=== PATIENT | female | born 2000 | race Two or more races ===

== ENCOUNTER 2021-12-26 08:42 | Inpatient (IN) | payer OTHER ==
[~2021-12-26] VITALS: Ht 165.1 cm; Wt 91.9 kg
[2021-12-26] VITALS (24 sets, daily range): BP systolic 123–176; BP diastolic 57–114
[2021-12-26] MEDS ORDERED: MAG Sulf (L&D) 4 GM/100 ML 4 GM in IV 1 EA IV ONE (09:20)
[2021-12-26] MEDS ORDERED: OXYTOCIN DRIP 30 UNITS in IV 1 EA IV PRN ×4 (09:20)
[2021-12-26] MEDS ORDERED: LIDOCAINE 1% MDV 20ML VIAL INFIL PRN (09:20)
[2021-12-26] MEDS ORDERED: TRANEXAMIC ACID INJection 1,000 MG in NS 100 ML IV PRN (09:20)
[2021-12-26] MEDS ORDERED: CARBOPROST TROMETHAMINE 250 MCG/ML AMP IM PRN (09:20)
[2021-12-26] MEDS ORDERED: OXYTOCIN INJ 10 UNITS/ML VIAL (J2590) IM PRN (09:20)
[2021-12-26] MEDS ORDERED: CALCIUM GLUCONATE 1,000 MG in D5W MINI-BAG PLUS 100 ML IV PRN (09:20)
[2021-12-26] MEDS: LR 1,000 ML IV SCH ×2 (09:50→20:00)
[2021-12-26] MEDS ORDERED: hydrALAZINE 20MG/ML 1ML VIAL (J0360 PER 20MG) IV ONE (10:00)
[2021-12-26] MEDS ORDERED: BETAMETHASONE SOLUSPAN 6MG/ML 5ML VIAL (J0702 PER 3MG) IM SCH (10:00)
[2021-12-26] MEDS: MAG Sulf (OBGYN) 20GM/500ML 20,000 MG in IV 1 EA IV SCH ×2 (10:07→19:59)
[2021-12-26] MEDS ORDERED: hydrALAZINE 20MG/ML 1ML VIAL (J0360 PER 20MG) IV PRN (10:20)
[2021-12-26 10:22] LABS: ALT/SGPT 19 U/L (12-78); BILIRUBIN,TOTAL 0.4 MG/DL (0.2-1.0); CREATININE FOR GFR 0.76 MG/DL (0.55-1.30); GLOMERULAR FILTRATION RATE > 60.0 (>60); LDH LACTATE DEHYDROGENASE 212 U/L (84-246); URIC ACID 5.1 MG/DL (2.6-6.0)
[2021-12-26 10:36] LABS: HEMATOCRIT 32.7 % (36.0-47.0); MEAN CORPUSCULAR HGB CONC 33.6 g/dl (32.0-36.5); MEAN CORPUSCULAR VOLUME 86.3 fl (80.0-96.0); PLATELET COUNT, AUTOMATED 262 10^3/uL (150-450); RED BLOOD COUNT 3.79 10^6/uL (4.00-5.40); WHITE BLOOD COUNT 9.9 10^3/uL (4.0-10.0)
[2021-12-26] MEDS ORDERED: BUPIVACAINE HCL 0.25% 10ML VIAL SC ONE (11:15)
[2021-12-26] MEDS ORDERED: BICITRA 30ML SOLN UDC PO ONE (11:15)
[2021-12-26] MEDS ORDERED: ceFAZolin SOD 2 GM in IV 1 EA IV ONE (11:15)
[2021-12-26] MEDS ORDERED: ACETAMINOPHEN 1000MG 100ML IV BTL (OFIRMEV) (J0131 PER 10MG) As Ordered ONE (13:41)
[2021-12-26] MEDS ORDERED: ONDANSETRON 4MG/2ML VIAL As Ordered ONE (13:41)
[2021-12-26] MEDS ORDERED: PHENYLephrine 500MCG 5ML (100MCG/ML) SYRINGE As Ordered ONE (13:41)
[2021-12-26] MEDS ORDERED: METOCLOPRAMIDE INJ 10MG/2ML VIAL (J2765 PER 1) As Ordered ONE (13:41)
[2021-12-26] MEDS ORDERED: MORPHINE PRES-FREE INJ 10 MG/10 ML VIAL As Ordered ONE (13:41)
[2021-12-26] MEDS ORDERED: OXYTOCIN 30 UNITS IN 0.9% NaCl 500ML IV BAG (J2590) As Ordered ONE ×2 (13:41→15:05)
[2021-12-26] MEDS ORDERED: KETOROLAC 60MG 2ML VIAL As Ordered ONE (13:41)
[2021-12-26] MEDS ORDERED: dexameTHASONE 4 MG/ML 1ML VIAL (J1100 PER 1MG) As Ordered ONE (13:41)
[2021-12-26] MEDS ORDERED: ePHEDrine SULFATE 25 MG/5 ML(5MG/ML) SYRINGE As Ordered ONE (13:41)
[2021-12-26 13:52] LABS: CORD GAS HCO3 A 22.2 MEQ/L; CORD GAS PCO2 A 58.6 mmHg; CORD GAS PH A 7.196 UNITS; CORD GAS PO2 A 25.3 mmHg; CORD GAS SBC A 17.8 MEQ/L
[2021-12-26 13:54] LABS: CORD GAS ABE V -4.8; CORD GAS HCO3 V 22.4 MEQ/L; CORD GAS O2 SAT V 36.4 %; CORD GAS PCO2 V 48.8 mmHg; CORD GAS PH V 7.28 UNITS; CORD GAS PO2 V 17.4 mmHg; CORD GAS TCO2 V 23.9 MEQ/L
[2021-12-26] MEDS ORDERED: oxyCODONE 5MG TAB PO PRN ×3 (14:15→14:25)
[2021-12-26] MEDS ORDERED: INSULIN LISPRO (NovoLOG) PER UNIT SC PRN (14:15)
[2021-12-26] MEDS ORDERED: fentaNYL 100 MCG/2 ML INJECTION IV PRN (14:15)
[2021-12-26] MEDS ORDERED: SIMETHICONE 80MG CHEW TAB PO PRN (14:25)
[2021-12-26] MEDS ORDERED: METOCLOPRAMIDE INJ 10MG/2ML VIAL (J2765 PER 1) IV PRN (14:25)
[2021-12-26] MEDS ORDERED: ONDANSETRON 4MG/2ML VIAL IV PRN (14:25)
[2021-12-26] MEDS ORDERED: MEASLES,MUMPS,RUBELLA VACCINE INJ (MMR-II) (90707) SC SCH (14:25)
[2021-12-26] MEDS ORDERED: RHOGAM 300 MCG (1500 IU) INJ (J2790) IM SCH (14:25)
[2021-12-26] MEDS: DOCUSATE SODIUM 100MG CAPSULE PO SCH (19:59)
[2021-12-26] MEDS: ACETAMINOPHEN 500 MG TAB PO SCH (19:59)
[2021-12-26] MEDS: KETOROLAC 30 MG/ML 1ML VIAL IV SCH (19:59)
[2021-12-26] MEDS ORDERED: diphenhydrAMINE 25MG CAP PO ONE (21:50)
[2021-12-27] VITALS (17 sets, daily range): BP systolic 108–177; BP diastolic 56–103
[2021-12-27] MEDS: ACETAMINOPHEN 500 MG TAB PO SCH ×4 (01:21→20:35)
[2021-12-27] MEDS: KETOROLAC 30 MG/ML 1ML VIAL IV SCH ×2 (01:21→08:01)
[2021-12-27] MEDS: MAG Sulf (OBGYN) 20GM/500ML 20,000 MG in IV 1 EA IV SCH (06:25)
[2021-12-27] MEDS: PRENATAL VITAMINS CHEWABLE TABLET PO SCH (08:01)
[2021-12-27] MEDS: DOCUSATE SODIUM 100MG CAPSULE PO SCH ×2 (08:01→20:34)
[2021-12-27] MEDS: LR 1,000 ML IV SCH (09:24)
[2021-12-27] MEDS: IBUPROFEN 800 MG TAB PO SCH (16:24)
[2021-12-27] MEDS: LABETALOL 200 MG TAB PO SCH (18:39)
[2021-12-28] MEDS: IBUPROFEN 800 MG TAB PO SCH ×2 (01:30→08:29)
[2021-12-28 02:00] VITALS: BP 135/71
[2021-12-28] MEDS: ACETAMINOPHEN 500 MG TAB PO SCH ×2 (02:00→08:29)
[2021-12-28 06:00] VITALS: BP 138/80
[2021-12-28] MEDS ORDERED: IBUP80TA PO (06:03)
[2021-12-28] MEDS ORDERED: LABE20TAB PO (06:03)
[2021-12-28] MEDS ORDERED: OXYC-517 PO (06:03)
[2021-12-28] MEDS ORDERED: ACET-683 PO (06:03)
[2021-12-28] MEDS: PRENATAL VITAMINS CHEWABLE TABLET PO SCH (08:26)
[2021-12-28] MEDS: DOCUSATE SODIUM 100MG CAPSULE PO SCH (08:26)
[2021-12-28 08:28] VITALS: BP 138/80
[2021-12-28] MEDS: LABETALOL 200 MG TAB PO SCH (08:28)
[2021-12-28 10:00] VITALS: BP 136/76
== END 2021-12-28 11:20 | disposition home or self-care (01) | DRG 773 ==
LOC: M LDO 08:42 → M LDI 09:17 → M OBS 12-27 15:13
PROVIDERS: ADMIT Obstetrics & Gynecology; ATTEND Obstetrics & Gynecology
PROC: 10D00Z1 Extraction of Products of Conception, Low, Open Approach (ICD-10-PCS; principal; 2021-12-26 12:30)
DX: O14.14 Severe pre-eclampsia complicating childbirth (principal); Z37.0 Single live birth; Z3A.36 36 weeks gestation of pregnancy; O60.14X0 Preterm labor third trimester with preterm delivery third trimester, not applicable or unspecified; O32.1XX0 Maternal care for breech presentation, not applicable or unspecified; Z88.0 Allergy status to penicillin

== ENCOUNTER 2022-08-07 16:45 | Emergency (ER) | payer OTHER ==
[~2022-08-07] VITALS: Ht 165.1 cm; Wt 75.0 kg
[~2022-08-07 16:45] MED LIST: ACET-683 PO; IBUP80TA PO; LABE20TAB PO; OXYC-517 PO
[2022-08-07 16:46] VITALS: BP 127/79
[2022-08-07] MEDS ORDERED: ACETAMINOPHEN 325 MG TAB PO ONE (17:45)
== END 2022-08-07 21:15 | disposition left against medical advice (07) ==
LOC: M ED 16:45
DX: Z53.21 Procedure and treatment not carried out due to patient leaving prior to being seen by health care provider (principal)